=== PATIENT | female | born 1985 | race Caucasian/White ===

== ENCOUNTER 2017-01-01 06:00 | Inpatient (IN) ==
[2017-01-01] MEDS ORDERED: Famotidine 20 MG/2 ML VIAL IVP PRN (07:33)
[2017-01-01] MEDS ORDERED: Metoclopramide 10 MG/2 ML VIAL IVP PRN (07:33)
[2017-01-01] MEDS ORDERED: Naloxone 0.4 MG/ML INJ IVP PRN (07:33)
[2017-01-01 08:14] LABS: Basophils # 0.1 K/mcL (0.0-0.2); Basophils % 0.5 %; Eosinophils # 0.1 K/mcL (0.0-0.6); Hematocrit 39.9 % (35.3-44.9); Hemoglobin 13.6 g/dL (11.5-15.4); Immature Granulocytes % 1.7 % (0-4); Immature Platelets 10.3 % (1.1-6.1); Lymphocytes # 2.2 K/mcL (0.6-4.6); Lymphocytes % 15.8 %; Mean Corpuscular HGB Conc 34.1 g/dL (31.6-35.5); Mean Corpuscular Hemoglobin 30.5 pg (28.0-33.3); Mean Corpuscular Volume 89.5 fL (83.0-100.0); Mean Platelet Volume 10.9 fL (9.4-12.4); Monocytes # 0.8 K/mcL (0.0-1.3); Neutrophils # 10.3 K/mcL (1.6-8.9); Platelet Count 189 K/mcL (140-400); Red Blood Count 4.46 M/mcL (3.82-4.97); Red Cell Distribution Width 12.8 % (11.5-14.5)
[2017-01-01] MEDS: Ringers Solution, Lactated 1,000 ML IVC SCH ×2 (08:38→13:12)
[2017-01-01] MEDS: Oxytocin 20 units/ LR 1000 mL 20 UNIT/1,000 ML BAG IVC SCH (08:39)
[2017-01-01] MEDS: Nicotine 21 MG PATCH.TD24 TD SCH (10:29)
--- NOTE | 2017-01-01 11:21 | OB/GYN History & Physical ---
Date of Encounter: 01/01/17 Time of Encounter: 11:19 Assessment and Plan (1) Elective induction of labor planned Current visit: Yes Status: Acute ok for epidural when patient desires, start pitocin for IOL, anticipate History of Present Illness HPI: Ms. Matias is a 31 year old female @ 39+0 weeks who comes in for scheduled IOL. She does not report leaking of fluid, vaginal bleeding or contractions, GBS neg. She is a smoker and is on subutex 4mg BID. Past Med Surg Social Fam HX - Past Medical History Medical history: no medical history Psychiatric history: no psych history - Past Surgical History Surgical History: no surgical history - Social History Smoking Status: Current every day smoker Smokeless Tobacco Status: No Alcohol use: none Drug use: opiates, marijuana - Family History Mother Living Status: Hx Family Endocrine Disorder: Yes (diabetes) Hx Family Medical Disorders: Yes (breast cancer,liver cancer) Obstetrical History - Pregnancies : 2 Para: 1 Term: 1 : 0 Livin Medications and Allergies Subutex 4 mg PO BID 01/01/17 [History] Allergies No Known Allergies Allergy (Verified 10/21/15 20:03) Review of System OB All systems PM: reviewed and no additional remarkable complaints except as stated Exam - Constitutional Constitutional: well nourished - HEENT HEENT: Normocephaly - Neck Neck exam: supple - Lungs Respiratory exam: CTAB - Cardiovascular Cardiovascular exam: RRR - Abdomen Abdomen: Present: gravid - Extremities Extremities exam: warm - Cervix Dilation: 2 Effacement: 80 Station: -1 Results Result Diagrams: 01/01/17 07:55 Abnormal lab results WBC 13.7 K/mcL (4.3-11.1) H 01/01/17 07:55 Neutrophils # 10.3 K/mcL (1.6-8.9) H 01/01/17 07:55 Immature Plt Fraction 10.3 % (1.1-6.1) H 01/01/17 07:55 All other labs normal. - VTE Reasons for not Prescribing Prophylaxis: Treatment not Indicated - Low risk for VTE
[2017-01-01] MEDS ORDERED: Bupivacaine-MPF 0.25% 10 ML VIAL EP ONE (11:57)
[2017-01-01] MEDS ORDERED: *HR* FentaNYL (PF) 100 MCG/2 ML VIAL EP ONE (11:57)
[2017-01-01] MEDS ORDERED: Epidural Premix (fent/bupiv) 110 ML EP ONE ×2 (12:00→18:36)
[2017-01-01] MEDS ORDERED: Epidural Premix (fent/bupiv) 110 ML EP SCH (12:00)
--- NOTE | 2017-01-01 12:41 | Anesthesia Procedures ---
Date of Encounter: 01/01/17 Time of Encounter: 12:05 Procedures: Anesthesia - Epidural/Spinal Patient ID/Chart reviewed: Yes Patient examined: Yes OB Eval: Gestational age: 37 OB Eval: : 2 OB Eval: Hx Para: 0 OB Eval: Dilated at (cm): 3 OB Eval: Contractions: Non-stressed pattern Consent Obtained: Yes Supplemental Oxygen: None/Room Air Site Prep: Aseptic Technique, Sterile prep and drape, Povidone-Iodine 1% Patient position: upright Local Anesthetic: Lidocaine 1% Amount of Local Anesthetic used: 3 Touhy Needle Gauge: 18 Touhy Needle Depth (cm): 5 Catheter Depth at Skin (cm): 12 Test Dose (1.5% Lido + Epi): Volume given (mls): 3 Test Dose Result: Negative Loading Dose: 0.25% Marcaine (mls): 5 Loading Dose: Fentanyl (mcg): 100 Loading Dose: Other: 3 ml saline Loading Dose Administered: Thru Catheter Infusion Med: 0.125% Bupivacaine w/ 2 mcg/ml Fentanyl Infusion Rate (mls/hr): [address]: Tegaderm, Tape Interspace Used: L3-L4 Loss of Resistance (BENITA): Yes (air) Blood: No CSF: No Paresthesia: No Procedure: 3 Vital Signs Time 1205 start 1217 test 1223 bolus 1233 finish BP 132/83 136/82 137/82 117/69 Pulse 72 66 89 74 Resp 16 16 16 16 O2 Sat 98 98 98 98 heart tones 140 throughout
--- NOTE | 2017-01-01 12:44 | Anesthesia Evaluation PreOp ---
Date of Encounter: 01/01/17 Time of Encounter: 11:40 - Past History Planned Operation: labor Cardiac History: Denies any Significant Hx Pulmonary History: Smoker (1 ppd x 15 years) [employer] History: Denies Any Significant HX Other Medical History: GERD (preg induced) Anesthesia History: No Prior Anesthetic Complications (wisdom teeth) : Yes Test: Positive Alcohol Use: none Drug use: opiates, marijuana Medications and Allergies Subutex 4 mg PO BID 01/01/17 [History] Allergies No Known Allergies Allergy (Verified 10/21/15 20:03) - Meds/Allergy Pre-op Review Medications Reviewed: Yes Allergies Reviewed: Yes Beta Blockers on Current Med List: No Anesthesia Results - Labs 01/01/17 07:55 Anesthesia Exam Height: 66 inches Weight: 68 kg NPO (# of Hours): deyanira Pain Scale: 6 Pain Scale Used: Numeric (1 - 10) - HEENT Pupil (Motor): Pupils equal Mallampati: III Teeth: Poor dentition Oral Opening: Greater than 3 - [employer] LOC: Oriented [employer] Motor: Normal RUE, Normal LUE, Normal RLE, Normal LLE, Normal Face [employer] Sensory: Normal: RUE, LUE, RLE, LLE, Face - Cardiac Rhythm: Regular Murmur: None JVD: No Carotid Bruit: No - Pulmonary Breath Sounds: bilateral Clear (smokers cough present) Respiratory Effort: Symmetrical Anesthesia Assess/Plan ASA Score: 2 Modified [place] Scale for Level of Consciousness: Cooperative, oriented, and tranquil Anesthetic Plan: Regional Monitoring Plan: Standard Monitors Recovery Plan: Other
--- NOTE | 2017-01-01 13:50 | OB Labor Progress Note ---
Date of Encounter: 01/01/17 Time of Encounter: 13:47 Labor Progress Note - Subjective Subjective: Patient resting in bed, patient comfortable with epidural in place. Discussed POC with patient. Patient denies any questions or concerns. - Cervix Cervix: 5/90/-1 - Heart Tones Heart Tones: 125 bpm moderate variability +15x15 accels early decels noted. Cat. 1 tracing - [place]: 1.5-2 min apart - Interventions Interventions: SVE, AROM large amount of clear fluid. IUPC placed without difficulty. - Plan Plan: Continue labor management.
[2017-01-01] MEDS ORDERED: Ondansetron 4 MG/2 ML VIAL ONE ×2 (14:23→20:22)
[2017-01-01] MEDS ORDERED: *HR* Buprenorphine HCl 2 MG SUBLINGUAL TABLET SL SCH (14:45)
[2017-01-01] MEDS: BUPRENORPHINE 8 MG SL SCH (15:13)
--- NOTE | 2017-01-01 15:49 | OB Labor Progress Note ---
Date of Encounter: 01/01/17 Time of Encounter: 15:47 Labor Progress Note - Subjective Subjective: Patient reports feeling pressure. Patient denies pain. - Cervix Cervix: 8/100/0 - Heart Tones Heart Tones: 130 bpm moderate variability +15x15 accels no decels noted. Cat. 1 tracing - [place]: 1.5-4 min apart - Interventions Interventions: SVE - Plan Plan: Continue labor management.
[2017-01-01] MEDS ORDERED: Acetaminophen 325 MG TABLET PO ONE ×2 (16:56→18:32)
[2017-01-01] MEDS ORDERED: Ondansetron 4 MG/2 ML VIAL IVP SCH (18:00)
[2017-01-01] MEDS ORDERED: Terbutaline 1 MG/ML VIAL SQ ONE (19:49)
[2017-01-01] MEDS ORDERED: *HR* Propofol 200 MG/20 ML VIAL IVP ONE (19:55)
[2017-01-01] MEDS ORDERED: *HR* Oxytocin 10 UNIT/ML VIAL IM ONE (19:56)
[2017-01-01] MEDS ORDERED: Lidocaine/EPI 1:200k 2% PF 20 ML VIAL ONE (20:18)
[2017-01-01] MEDS ORDERED: *HR* Morphine Sulfate/PF 5 MG/10 ML AMPUL ONE (20:38)
[2017-01-01] MEDS ORDERED: Ringers Solution, Lactated 1,000 ML ONE (20:42)
[2017-01-01] MEDS ORDERED: *HR* Promethazine 25 MG/ML VIAL ONE (20:54)
[2017-01-01] MEDS ORDERED: Chloroprocaine/PF 20 ML VIAL INFILT ONE (20:55)
[2017-01-01] MEDS ORDERED: *HR* Phenylephrine 10 MG/ML VIAL ONE (21:10)
[2017-01-01] MEDS ORDERED: EPHEDrine 50 MG/ML VIAL ONE ×2 (21:43→22:00)
[2017-01-01] MEDS ORDERED: Sennosides 8.6 MG TABLET PO PRN (22:05)
[2017-01-01] MEDS ORDERED: *HR* HYDROmorphone (PF) 1 MG/ML SYRINGE IVP PRN (22:08)
--- NOTE | 2017-01-01 22:10 | OB/GYN Procedure Note ---
Section - Date of procedure: 01/01/17 Preop diagnosis: arrest of descent, category 2 FHT tracing Post-op diagnosis: same Procedure: section, primary low transverse Surgeon: Becki Edmonds Estimated blood loss (cc): 400 Anesthesia Type: Epidural section complications: none Disposition: L&D Recovery Room Specimens: Placenta, Cord blood - (s) A Gender: Female Viability: Viable Gram Weight: 2.91 kg at 1 minute: 8 at 5 minutes: 9 Specimens collected: cord blood Placenta: complete extraction - Narrative Narrative: Indications: Michael became fully dilated and +2 station before she began to push. She pushed for about an hour and heart rate became bradycardic. Terbutaline was given because of tachysystole but the heart did not recover. The decision was made at that time to proceed to C section. When we got into the OR, the heart rate tones were noted to be in the 130's. We tried to do a vaginal delivery so we allowed Michael to try to push again in the OR. She started pushing and before long the rate tones dropped again to the 80's. I tried to use a vacuum at +2 station but with 2 pop offs and continued heart rate tones in the 80's, I made the decision to perform a primary C section Procedure: With the patient on the OR table with adequate epidural anesthesia on board and an indwelling catheter in place in the bladder, her abdomen was prepped with Betadine and draped in standard fashion for section. After testing with forceps to assure an adequate anesthetic level, the surgery was commenced. With the scalpel, a Pfannenstiel skin incision was made. Dissection was carried down sharply through the subcutaneous tissues and fascia in a transverse plane with the scalpel, electrocautery and curved Woodall scissors. The fascia was sharply freed up superiorly and inferiorly from the underlying rectus muscles, which were bluntly and sharply divided. The peritoneum was entered carefully in a blunt fashion. The peritoneal incision was then extended. A retractor and bladder blade were placed. A bladder flap was created by incising transversely through the peritoneum and vesicouterine fold and then bluntly dissecting the bladder distally. With the scalpel, a low transverse hysterotomy was commenced. The serosa and myometrium were scored with the scalpel. The uterine cavity was entered bluntly. An intrauterine hand was placed and the head of the was brought up out of the pelvis into the uterine incision with the help of one of my nurses elevating the head. With fundal pressure, she was delivered without difficulty. The nasopharynx and oropharynx were suctioned. The cord was doubly clamped and transected. The infant was then handed off to the nursery personnel. Apgars were good at 8 and 9. The placenta was manually removed and showed a small abruption. The uterine cavity was then curetted with a dry sponge and freed of the remaining membranes. The uterine incision was then closed in 2 layers of 0 Vicryl sutures. The uterine incision was reinspected to assure hemostasis. The uterus, tubes and ovaries were inspected and were normal. Once we were satisfied with the hemostasis, attention was turned to closure of the abdominal incision. The fascia was closed in layers using 0-Vicryl sutures. The skin was closed with a subcuticular suture of 4-0 Vicryl followed by benzoin , Steri-Strips and a Telfa dressing. The patient was moved to the recovery room in stable condition. Instruments, sponge and needle counts were reported as correct. Estimated blood loss was 400 mL. There were no complications.
[2017-01-01] MEDS ORDERED: Ringers Solution, Lactated 1,000 ML IVC SCH (22:15)
[2017-01-02] MEDS ORDERED: Ketorolac 30 MG/ML VIAL IVP ONE (00:53)
[2017-01-02] MEDS: Oxytocin 20 units/ LR 1000 mL 20 UNIT/1,000 ML BAG IVC SCH ×2 (01:16→08:29)
[2017-01-02 05:17] LABS: Basophils % 0.1 %; Hematocrit 31.6 % (35.3-44.9); Immature Granulocytes % 0.5 % (0-4); Lymphocytes # 1.2 K/mcL (0.6-4.6); Lymphocytes % 7.3 %; Mean Corpuscular HGB Conc 33.9 g/dL (31.6-35.5); Mean Corpuscular Hemoglobin 30.4 pg (28.0-33.3); Mean Corpuscular Volume 89.8 fL (83.0-100.0); Mean Platelet Volume 11.4 fL (9.4-12.4); Monocytes % 5.8 %; Neutrophils # 14.4 K/mcL (1.6-8.9); Platelet Count 152 K/mcL (140-400); Red Blood Count 3.52 M/mcL (3.82-4.97); Red Cell Distribution Width 12.8 % (11.5-14.5); Segmented Neutrophils % 86.3 %
[2017-01-02 05:23] LABS: Hemoglobin 10.7 g/dL (11.5-15.4)
[2017-01-02] MEDS ORDERED: *HR* Succinylcholine 200 MG/10 ML VIAL IVP ONE (06:48)
--- NOTE | 2017-01-02 08:03 | OB/GYN Progress Note ---
Date of Encounter: 01/02/17 Time of Encounter: 08:00 - Assessment and Plan (1) Status post section Current Visit: Yes Status: Acute Subjective - Subjective Interval history: Patient doing well still having some pain but no nausea vomiting. Catheter still in place will remove and get patient up and relating. Patient's diet will be advanced as tolerated anticipate discharge tomorrow if stable and afebrile Patient reports: appetite normal, pain well controlled : doing well, in NICU Objective - Vital Signs Latest vital signs: Vital Signs Temp Pulse Resp BP Pulse Ox 01/02/17 03:15 98.7 F 91 20 102/57 96 01/02/17 02:15 67 16 118/68 98 01/02/17 01:15 97.7 F 83 16 98 01/02/17 00:55 97.6 F 97 18 121/71 98 01/02/17 00:20 98.4 F 93 16 126/77 97 Intake and Output 01/01/17 01/02/17 01/02/17 23:59 07:59 15:59 Intake Total 1000 / 1000 Output Total 800 / 800 Balance 200 / 200 Intake: IV Fluids 1000 / 1000 Pitocin 20 unit In 1,000 1000 / 1000 ml @ Per Protocol IVC . Q0M DAVID Rx#:[id number] Output: Catheter 800 / 800 Other: Weight 68.2 kg Patient Weight 01/02/17 23:59 Weight 68.2 kg - Exam Lungs: bilateral: normal Chest: Normal S1, Normal S2 Extremities: Present: normal Abdomen: Present: soft Incision: Present: dry, intact, dressed - Labs Labs: Laboratory Results - last 24 hr 01/01/17 01/02/17 07:55 04:25 WBC 13.7 H 16.6 H RBC 4.46 3.52 L Hgb 13.6 10.7 L D Hct 39.9 31.6 L MCV 89.5 89.8 MCH 30.5 30.4 MCHC 34.1 33.9 RDW 12.8 12.8 Plt Count 189 152 MPV 10.9 11.4 Immature Gran % 1.7 0.5 Seg Neutrophils % 75.0 86.3 Lymphocytes % 15.8 7.3 Monocytes % 6.0 5.8 Eosinophils % 1.0 0.0 Basophils % 0.5 0.1 Neutrophils # 10.3 H 14.4 H Lymphocytes # 2.2 1.2 Monocytes # 0.8 1.0 Eosinophils # 0.1 0.0 Basophils # 0.1 0.0 Immature Plt Fraction 10.3 H
[2017-01-02] MEDS: Prenatal Vit/FA 1 EACH TABLET PO SCH (08:04)
[2017-01-02] MEDS: Simethicone 80 MG TAB.CHEW PO PRN (08:04)
[2017-01-02] MEDS: *HR* OxyCODONE/APAP 5/325 TABLET PO PRN ×4 (08:04→22:46)
[2017-01-02] MEDS: Nicotine 21 MG PATCH.TD24 TD SCH (08:12)
[2017-01-02] MEDS: Ibuprofen 600 MG TABLET PO PRN (20:12)
[2017-01-02] MEDS: BUPRENORPHINE 8 MG SL SCH (22:49)
[2017-01-03] MEDS: Ibuprofen 600 MG TABLET PO PRN ×2 (03:36→21:10)
[2017-01-03] MEDS: *HR* OxyCODONE/APAP 5/325 TABLET PO PRN ×5 (03:42→21:37)
[2017-01-03] MEDS: Simethicone 80 MG TAB.CHEW PO PRN (07:44)
[2017-01-03] MEDS: Nicotine 21 MG PATCH.TD24 TD SCH (08:13)
[2017-01-03] MEDS: Prenatal Vit/FA 1 EACH TABLET PO SCH (09:44)
--- NOTE | 2017-01-03 10:48 | OB/GYN Progress Note ---
Date of Encounter: 01/03/17 Time of Encounter: 10:45 - Assessment and Plan (1) Status post section Current Visit: Yes Status: Acute ambulation encouraged, continue current inpt care, patient doing well Subjective - Subjective Interval history: patient doing well, ambulating, tolerating PO intake, lochia is light, pain is under control, bottle feeding Patient reports: appetite normal, voiding normally, pain well controlled, ambulating normally : doing well Objective - Vital Signs Latest vital signs: Vital Signs Temp Pulse Resp BP Pulse Ox 01/03/17 08:00 97.8 F 85 16 105/72 100 01/02/17 20:15 98.3 F 98 16 114/72 99 01/02/17 20:14 16 01/02/17 16:30 98.9 F 92 16 121/78 99 01/02/17 13:00 98.2 F 93 16 115/70 98 Intake and Output 01/02/17 01/03/17 01/03/17 22:59 07:59 15:59 Intake Total 600 / 600 Output Total 700 / 700 Balance -100 / -100 Intake: Oral 600 / 600 Output: Urine 700 / 700 Other: Stool Characteristics Normal for Patient # Voids Weight Patient Weight 01/04/17 00:59 Weight 68.4 kg - Exam Lungs: bilateral: normal Chest: Normal S1, Normal S2 Extremities: Present: normal Abdomen: Present: soft Incision: Present: normal Uterus: Present: normal
[2017-01-04] MEDS: *HR* OxyCODONE/APAP 5/325 TABLET PO PRN ×2 (04:14→09:56)
--- NOTE | 2017-01-04 08:26 | Discharge Summary ---
Date of Encounter: 01/04/17 Time of Encounter: 08:23 - Discharge Diagnosis (1) Status post section Priority: Primary Status: Acute Comments: Pt sleeping on entering room. Pt states she is having pain, but the pain medication is helping. - Discharge Medications Prescriptions: Ibuprofen [Motrin] 600 mg PO Q6HR PRN #60 tablet PRN Reason: Cramping OxyCODONE/APAP 5/325 [Percocet 5/325 MG] 2 each PO Q6HR PRN #30 tablet PRN Reason: Pain Docusate [Colace] 100 mg PO BID #60 capsule Home Medications: Subutex 4 mg PO BID 01/01/17 [History] Docusate [Colace] 100 mg PO BID #60 capsule 01/04/17 [Rx] Ibuprofen [Motrin] 600 mg PO Q6HR PRN #60 tablet 01/04/17 [Rx] Nicotine Patch [Nicoderm] 21 mg TD DAILY patch.td24 01/04/17 [Rx] OxyCODONE/APAP 5/325 [Percocet 5/325 MG] 2 each PO Q6HR PRN #30 tablet 01/04/17 [Rx] Patient Taking Own Medication 0.5 each SL BID each 01/04/17 [Rx] Vit/FA 1 each PO DAILY tablet 01/04/17 [Rx] Allergies/Adverse Reactions: Allergies No Known Allergies Allergy (Verified 10/21/15 20:03) Data Procedures and tests throughout hospitalization: Laboratory Tests 01/01/17 01/02/17 07:55 04:25 WBC 13.7 H 16.6 H RBC 4.46 3.52 L Hgb 13.6 10.7 L D Hct 39.9 31.6 L MCV 89.5 89.8 MCH 30.5 30.4 MCHC 34.1 33.9 RDW 12.8 12.8 Plt Count 189 152 MPV 10.9 11.4 Immature Gran % 1.7 0.5 Seg Neutrophils % 75.0 86.3 Lymphocytes % 15.8 7.3 Monocytes % 6.0 5.8 Eosinophils % 1.0 0.0 Basophils % 0.5 0.1 Neutrophils # 10.3 H 14.4 H Lymphocytes # 2.2 1.2 Monocytes # 0.8 1.0 Eosinophils # 0.1 0.0 Basophils # 0.1 0.0 Immature Plt Fraction 10.3 H Date of admission: 01/01/17 06:13 Primary care physician: PCP NO Discharging clinician: Key Jameson Anticipated date of discharge: 01/04/17 - Patient Status Disposition: Home, Self-Care Condition: Good Functional capacity at discharge: independent ambulation Overall status at discharge: patient is back to baseline - Discharge Instructions Follow Up With: NO,PCP [Primary Care Provider] - Becki Edmonds MD [Partnered Physician] - Additional Instructions: Perineal Care: Always wipe front to back Change your pad frequently Use your joana bottle with warm water and spray front to back Do not douche, use tampons, have sexual intercourse or put anything in your vagina for 4-6 weeks after delivery Bleeding: Vaginal bleeding can last up to 6 weeks Your menstrual period may return as early as 6 weeks after you are discharged from the hospital [place]/Stitches Care: Vaginal Delivery Vaginal stitches will dissolve within 4-6 weeks Follow perineal care instructions Care Stitches will dissolve on their own If you have ori, they will need to be removed in the doctors office within 5-7 days. You may shower with stitches or ori Drip plan or soapy water over the incision to clean. Pat dry gently with a clean towel. Make sure you completely dry under the skin folds DO NOT USE powders, lotions, rubbing alcohol or hydrogen peroxide on or around your incision. This will slow your wound healing It is normal to have soreness, burning, tingling, itchiness and/or numbness as your incision heals Activity: Rest frequently Do not lift anything heavier than a gallon of milk, up to 10-15 pounds No driving for 1-2 weeks for Vaginal delivery No driving for 2-4 weeks for delivery Take stairs slowly, one at a time Gradually increase your daily activity until you are back to your normal routine Do not exercise until you have had your follow-up appointment Bathing: Take a shower daily Do not take a tub bath for the first 4 weeks Diet: Drink plenty of water and fruit juices Eat a well-balanced diet with foods high in fiber such as fruits and vegetables Depression: Your hormones have a major impact on your feelings and emotions. Hormone imbalance may cause changes in your mood, creating unfamiliar thoughts and actions. Support is available to help you understand and cope with these feelings and mood changes. If you answer yes to any of the following questions, please call your health care provider: Are you having trouble sleeping? Are you feeling isolated? Have you lost your appetite? Are you having thoughts of hurting yourself or others? WARNING SIGNS: Heavy bleeding from the vagina (blood is bright red and soaks a sanitary pad in an hour or less.) Passing a blood clot larger than your fist Discharge from the vagina that has a bad odor Temperature over 100.4 F, or if you feel cold and have chills An episiotomy site that is warm, swollen or oozing. Use a mirror if needed Urination (pee) that is painful, very red and swollen or leaking fluid An incision that is painful, very red and swollen and leaking fluid An incision that has come open Breasts that are painful or full with flu like symptoms Redness, warmth or swelling in the calf of your leg Trouble breathing, dizziness, visual disturbance or faintness *Notify your health care provider immediately or go to the nearest Emergency Room if you experience any of the above signs.* To contact the nurses station 24 hours a day, For non-urgent, routine questions, please call the office at - Diet and Activity Activity: resume usual activities as tolerated Diet: regular diet Hospital Course Reason for admission: induction of labor Delivery: section Other procedures: none complications: none Discharge diagnosis: IUP at term delivered [place] baby: female Hospital course: Section - Date of procedure: 01/01/17 Preop diagnosis: arrest of descent, category 2 FHT tracing Post-op diagnosis: same Procedure: section, primary low transverse Surgeon: Becki Edmonds Estimated blood loss (cc): 400 Anesthesia Type: Epidural section complications: none Disposition: L&D Recovery Room Specimens: Placenta, Cord blood - Infant (s) A Gender: Female Viability: Viable Gram Weight: 2.91 kg at 1 minute: 8 at 5 minutes: 9 Specimens collected: cord blood Placenta: complete extraction Stable in . Appropriate for discharge. Infant to stay for [facility] observation. Time Attestation: Total time spent providing and/or coordinating discharge services: Time Spent: Less than 30 minutes - VTE Reasons for not Prescribing Prophylaxis: Treatment not Indicated - Low risk for VTE Documentation of Mechanical Device: Intermittent pneumatic compression device Exam - Constitutional Vitals: Temp Pulse Resp BP Pulse Ox 98.4 F 93 12 117/78 99 01/03/17 21:15 01/03/17 21:15 01/03/17 21:15 01/03/17 21:15 01/03/17 21:15 General appearance IM: A&O X 3 - Respiratory Respiratory exam: Present: CTAB - Cardiovascular Cardiovascular exam IM: Present: RRR, +S1, +S2 - GI/Abdominal GI/Abdominal exam IM: soft, tenderness Incision: intact (approximated with steristrips in place. Small amount of drainage noted. ) - Uterine Tone: Firm - Extremities Exam Extremities exam IM: Present: normal inspection - Neurological Exam Neurological exam: oriented X3 - Psychiatric Additional comments: pt states mood stable.
[2017-01-04 08:41] VITALS: BP 97/58
[2017-01-04] MEDS: Prenatal Vit/FA 1 EACH TABLET PO SCH (09:56)
== END 2017-01-04 09:58 | disposition home or self-care (01) | DRG 540 ==
LOC: 1NENULAB 06:13 → 1NENUOBS 01-02 00:18
PROVIDERS: ADMIT Student in an Organized Health Care Education/Training Program; ATTEND Student in an Organized Health Care Education/Training Program